=== PATIENT | female | born 1990 | race Caucasian/White ===

== ENCOUNTER 2018-02-24 12:17 | Outpatient (CLI) | payer MEDICAID | END 2018-02-24 14:27 | disposition home or self-care (01) | LOC: OBT 12:17 → L-D 12:19 → OBT 14:27 | DX: O34.219 Maternal care for unspecified type scar from previous cesarean delivery (principal); Z3A.38 38 weeks gestation of pregnancy | CPT/HCPCS: 76818 ==

== ENCOUNTER 2018-02-28 09:43 | Outpatient (CLI) | payer MEDICAID | END 2018-02-28 12:30 | disposition home or self-care (01) | LOC: OBT 09:43 → L-D 09:44 → OBT 12:30 | DX: O62.9 Abnormality of forces of labor, unspecified (principal); Z3A.38 38 weeks gestation of pregnancy | CPT/HCPCS: 76818 ==

== ENCOUNTER 2018-03-03 13:20 | Outpatient (CLI) | payer MEDICAID | END 2018-03-03 16:45 | disposition home or self-care (01) | LOC: OBT 13:20 → L-D 13:20 → OBT 16:45 | DX: O34.219 Maternal care for unspecified type scar from previous cesarean delivery (principal); Z3A.19 19 weeks gestation of pregnancy | CPT/HCPCS: 76815; 76818 ==

== ENCOUNTER 2018-03-07 07:35 | Inpatient (IN) | payer MEDICAID ==
[2018-03-07] MEDS ORDERED: MISOPROSTOL 200 MCG TAB PR ×2 (08:00→16:30)
[2018-03-07] MEDS ORDERED: CARBOPROST 250 MCG INJ IM ×2 (08:00→16:30)
[2018-03-07] MEDS ORDERED: OXYTOCIN 30 UNITS/LR 500 ML IV ×2 (08:00→16:30)
[2018-03-07] MEDS ORDERED: LIDOCAINE 1% (MPF) 30 ML INJ INJ (08:00)
[2018-03-07] MEDS ORDERED: BUTORPHANOL 1 MG INJ IV (08:00)
[2018-03-07 08:15] LABS: ADD MAN DIFF? NO
[2018-03-07 08:17] LABS: BASOPHILS % 0.2 % (0.0-2.0); EOSINOPHILS % 0.2 % (0.0-7.0); HEMATOCRIT 39.8 % (37.0-47.0); HEMOGLOBIN 13.7 g/dl (12.0-16.0); LYMPHOCYTES # 1.3 10^3/ul (0.8-2.9); LYMPHOCYTES % 10.7 % (15.0-51.0); MEAN CORPUSCULAR HEMOGLOBIN 30.2 pg (29.0-33.0); MEAN CORPUSCULAR HGB CONC 34.4 g/dl (32.0-37.0); MEAN CORPUSCULAR VOLUME 87.9 fl (82.0-101.0); MEAN PLATELET VOLUME 10.5 fl (7.4-10.4); MONOCYTE # 0.7 10^3/ul (0.3-0.9); MONOCYTES % 5.3 % (0.0-11.0); NEUTROPHILS % 82.5 % (39.0-77.0); PLATELET COUNT 169 10^3/UL (140-415); RED BLOOD COUNT 4.53 10^6/ul (4.20-5.40); RED CELL DISTRIBUTION WIDTH 12.5 % (11.5-14.5)
[2018-03-07 08:17] LABS: WHITE BLOOD COUNT 12.2 10^3/ul (4.8-10.8)
[2018-03-07] MEDS: AMPICILLIN 2 GM/NS (PMX) 100 ML IV (08:19)
[2018-03-07] MEDS: LACTATED RINGER'S 1,000 ML IV ×2 (08:19→09:24)
[2018-03-07 08:47] LABS: INR 0.94; PROTIME 12.7 Sec (11.9-14.9)
[2018-03-07 08:48] LABS: PARTIAL THROMBOPLASTIN TIME 24.6 Sec (25.0-35.0)
[2018-03-07] MEDS: BUTORPHANOL 2 MG INJ IV (09:03)
[2018-03-07 09:39] LABS: ALANINE AMINOTRANSFERASE 24 IU/L (13-69); ASPARTATE AMINO TRANSFERASE 24 IU/L (15-46); URIC ACID 4.1 mg/dl (3.1-7.9)
[2018-03-07 09:39] LABS: CREATININE 0.47 mg/dl (0.44-1.00)
[2018-03-07] MEDS ORDERED: FENTAnyl 2MCG/ML-ROPIV 0.2% 100 ML (10:48)
[2018-03-07 11:18] LABS: HEPATITIS B SURFACE ANTIGEN NEGATIVE (NEGATIVE)
[2018-03-07] MEDS ORDERED: ONDANSETRON 4 MG INJ IV (11:30)
[2018-03-07] MEDS ORDERED: DIPHENHYDRAMINE 50 MG INJ IV (11:30)
[2018-03-07] MEDS ORDERED: NALOXONE (0.4 MG/ML) INJ IV (11:30)
[2018-03-07] MEDS: AMPICILLIN 1 GM/NS (PMX) 50 ML IV (12:24)
[2018-03-07] MEDS: MINERAL OIL LIGHT 10 ML VIAL TOP (12:29)
[2018-03-07] MEDS: FENTAnyl 2MCG/ML-ROPIV 0.2% 100 ML BAG EPI (12:29)
[2018-03-07] MEDS: OXYTOCIN 30 UNITS/LR 500 ML IV ×3 (12:55→15:13)
[2018-03-07] MEDS: METHYLERGONOVINE 0.2 MG INJ IM (15:14)
[2018-03-07] MEDS ORDERED: METHYLERGONOVINE 0.2 MG INJ IM (16:30)
[2018-03-07] MEDS ORDERED: HYDROCODONE/APAP (5/325) TAB PO ×2 (16:30)
[2018-03-07] MEDS ORDERED: DIBUCAINE 1% 30 GM OINT TOP (16:30)
[2018-03-07] MEDS ORDERED: ZOLPIDEM 5 MG TAB PO (16:30)
[2018-03-07] MEDS: IBUPROFEN 600 MG TAB PO ×2 (17:39→23:51)
[2018-03-07] MEDS: WITCH HAZEL/GLYCERIN PAD PR (17:39)
[2018-03-07] MEDS: LANOLIN 7 GM TUBE TOP (17:40)
[2018-03-07] MEDS: BENZOCAINE 20% 56 ML SPRAY TOP (17:40)
[2018-03-07] MEDS: CEPHALEXIN 500 MG CAP PO ×2 (17:40→23:51)
[2018-03-07] MEDS: LACTATED RINGER'S 1,000 ML IV* (17:41)
[2018-03-07] MEDS: MAGNESIUM HYDROXIDE 30ML CUP PO (21:48)
[2018-03-07] MEDS: SENNA/DOCUSATE NA (8.6MG/50MG) TAB PO (21:48)
[2018-03-07 22:04] LABS: RAPID PLASMA REAGIN NONREACTIVE (NR)
[2018-03-08] MEDS: LACTATED RINGER'S 1,000 ML IV* ×4 (00:14→20:23)
[2018-03-08] MEDS: IBUPROFEN 600 MG TAB PO ×4 (06:00→23:48)
[2018-03-08] MEDS: CEPHALEXIN 500 MG CAP PO ×4 (06:00→23:48)
[2018-03-08] MEDS ORDERED: CEFAZOLIN 1 GM INJ (07:00)
[2018-03-08] MEDS: SENNA/DOCUSATE NA (8.6MG/50MG) TAB PO ×2 (09:00→21:04)
[2018-03-08] MEDS: MAGNESIUM HYDROXIDE 30ML CUP PO ×2 (09:00→21:04)
[2018-03-08 09:36] LABS: ADD MAN DIFF? NO
[2018-03-08 09:38] LABS: BASOPHILS % 0.2 % (0.0-2.0); EOSINOPHILS # 0.1 10^3/ul (0.0-0.5); HEMATOCRIT 31.9 % (37.0-47.0); HEMOGLOBIN 10.7 g/dl (12.0-16.0); LYMPHOCYTES # 1.7 10^3/ul (0.8-2.9); LYMPHOCYTES % 16.2 % (15.0-51.0); MEAN CORPUSCULAR HEMOGLOBIN 30.2 pg (29.0-33.0); MEAN CORPUSCULAR HGB CONC 33.5 g/dl (32.0-37.0); MEAN CORPUSCULAR VOLUME 90.1 fl (82.0-101.0); MEAN PLATELET VOLUME 10.5 fl (7.4-10.4); MONOCYTE # 0.8 10^3/ul (0.3-0.9); MONOCYTES % 7.9 % (0.0-11.0); NEUTROPHIL # 7.7 10^3/ul (1.6-7.5); NEUTROPHILS % 73.7 % (39.0-77.0); PLATELET COUNT 166 10^3/UL (140-415); RED BLOOD COUNT 3.54 10^6/ul (4.20-5.40); RED CELL DISTRIBUTION WIDTH 12.8 % (11.5-14.5)
[2018-03-08 09:38] LABS: WHITE BLOOD COUNT 10.4 10^3/ul (4.8-10.8)
[2018-03-08] MEDS ORDERED: FENTAnyl 50 MCG/ML VIAL (14:25)
[2018-03-08] MEDS ORDERED: BUPIVACAINE 0.75%/DEXT (SPINAL) 2 ML INJ (14:25)
[2018-03-08] MEDS ORDERED: ONDANSETRON 4 MG INJ (14:25)
[2018-03-08] MEDS ORDERED: MIDAZOLAM 1 MG/ML 2 ML INJ (14:36)
[2018-03-08] MEDS ORDERED: DIPHENHYDRAMINE 50 MG INJ (14:48)
[2018-03-08] MEDS: BUPIVACAINE 0.25%/EPI (SDV) 30 ML INJ INJ (14:51)
[2018-03-08] MEDS ORDERED: LABETALOL HCL 20MG INJ IV (15:00)
[2018-03-08] MEDS ORDERED: hydrALAzine 20 MG INJ IV (15:00)
[2018-03-08] MEDS ORDERED: DIPHENHYDRAMINE 50 MG INJ IV (15:00)
[2018-03-08] MEDS ORDERED: ONDANSETRON 4 MG INJ IV (15:00)
[2018-03-08] MEDS ORDERED: FENTAnyl 50 MCG/ML VIAL IV ×3 (15:00)
[2018-03-08] MEDS ORDERED: IPRATROPIUM (NEB) 0.5 MG/2.5 ML AMP HHN (15:00)
[2018-03-08] MEDS ORDERED: MIDAZOLAM 1 MG/ML 2 ML INJ IV (15:00)
[2018-03-08] MEDS ORDERED: ALBUTEROL 0.083% (NEB) 2.5 MG/3 ML AMP HHN (15:00)
[2018-03-08] MEDS ORDERED: OXYCODONE/ACETAMINOPHEN (5/325) TAB PO ×2 (15:00)
[2018-03-08] MEDS ORDERED: EPHEDrine SULFATE 50 MG/5 ML SYG IV (15:00)
[2018-03-08] MEDS ORDERED: TRIMETHOBENZAMIDE 100 MG/ML VIAL IM (15:00)
[2018-03-08] MEDS ORDERED: MEPERIDINE 25 MG INJ IV (15:00)
[2018-03-08] MEDS ORDERED: HYDROmorphONE (0.2 MG/ML) 10ML SYG IV ×3 (15:00)
[2018-03-08] MEDS ORDERED: KETOROLAC 60 MG INJ IM (15:25)
[2018-03-08] MEDS: BUTORPHANOL 2 MG INJ IM ×2 (16:14)
[2018-03-08] MEDS: CEFAZOLIN 2 GM/50 ML (PMX) 50 ML IVPB (16:15)
[2018-03-08] MEDS: KETOROLAC 60 MG INJ IM (16:50)
[2018-03-08] MEDS: LACTATED RINGER'S 1,000 ML IV (17:21)
[2018-03-08] MEDS ORDERED: ZOLPIDEM 5 MG TAB PO (20:30)
[2018-03-08] MEDS ORDERED: DIBUCAINE 1% 30 GM OINT PR (20:30)
[2018-03-09] MEDS: HYDROCODONE/APAP (5/325) TAB PO ×3 (04:02→12:15)
[2018-03-09] MEDS: CEPHALEXIN 500 MG CAP PO ×2 (05:38→11:59)
[2018-03-09] MEDS: IBUPROFEN 600 MG TAB PO ×2 (05:38→11:59)
[2018-03-09] MEDS ORDERED: MEASLES,MUMPS,RUBELLA VACCINE INJ SC* (09:00)
[2018-03-09] MEDS ORDERED: VARICELLA VACCINE LIVE/PF 1,350 UNIT/0.5 ML ML SC* (09:00)
[2018-03-09] MEDS ORDERED: DIPHTH/TET/ACEL PERTUSS (ADULT) 0.5 ML VIAL IM* (09:00)
[2018-03-09] MEDS: MAGNESIUM HYDROXIDE 30ML CUP PO (09:27)
[2018-03-09] MEDS: SENNA/DOCUSATE NA (8.6MG/50MG) TAB PO (09:27)
[2018-03-09] MEDS: DIPHTH/TET/ACEL PERTUSS (ADULT) 0.5 ML VIAL IM* (12:02)
[2018-03-09] MEDS: LANOLIN 7 GM TUBE TOP (12:18)
[2018-03-09] MEDS: WITCH HAZEL/GLYCERIN PAD PR (12:18)
[2018-03-09] MEDS: BENZOCAINE 20% 56 ML SPRAY TOP (12:18)
[2018-03-10] MEDS ORDERED: DIPHTH/TET/ACEL PERTUSS (ADULT) 0.5 ML VIAL IM* (09:00)
[2018-03-10] MEDS ORDERED: VARICELLA VACCINE LIVE/PF 1,350 UNIT/0.5 ML ML SC* (09:00)
[2018-03-10] MEDS ORDERED: MEASLES,MUMPS,RUBELLA VACCINE INJ SC* (09:00)
== END 2018-03-09 14:19 | disposition home or self-care (01) | DRG 767 ==
LOC: OBT 07:35 → L-D 07:36 → OBT 07:50 → L-D 07:45 → PP1 15:51
PROVIDERS: Obstetrics & Gynecology
PROC: 0UL70ZZ Occlusion of Bilateral Fallopian Tubes, Open Approach (ICD-10-PCS; 2018-03-08 14:00)
PROC: 10E0XZZ Delivery of Products of Conception, External Approach (ICD-10-PCS; principal; 2018-03-08 14:17)
DX: O34.211 Maternal care for low transverse scar from previous cesarean delivery (principal); Z30.2 Encounter for sterilization; Z3A.39 39 weeks gestation of pregnancy; Z37.0 Single live birth
CPT/HCPCS: 62319; 82565; 84450; 84460; 84560; 85025; 85610; 85730; 86592; 86850; 86900; 86901; 87340; 88302; 90715

== ENCOUNTER 2019-01-29 08:08 | Emergency (ER) | payer MEDICAID ==
[2019-01-29 09:01] LABS: URINE BLOOD (Dip) POC Negative (NEGATIVE); URINE GLUCOSE (Dip) POC Negative (NEGATIVE); URINE KETONES (Dip) POC Negative (NEGATIVE); URINE LEUKOCYTE EST (Dip) POC Negative (NEGATIVE); URINE NITRITE (Dip) POC Negative (NEGATIVE); URINE TOTAL PROTEIN POC Negative (NEGATIVE)
[2019-01-29] MEDS: KETOROLAC 60 MG INJ IM (09:09)
[2019-01-29 09:10] LABS: ADD MAN DIFF? NO
[2019-01-29 09:13] LABS: WHITE BLOOD COUNT 9.3 10^3/ul (4.8-10.8)
[2019-01-29 09:13] LABS: BASOPHILS % 0.3 % (0.0-2.0); EOSINOPHILS % 0.3 % (0.0-7.0); HEMATOCRIT 39.3 % (37.0-47.0); HEMOGLOBIN 13.3 g/dl (12.0-16.0); LYMPHOCYTES # 1.4 10^3/ul (0.8-2.9); LYMPHOCYTES % 14.6 % (15.0-51.0); MEAN CORPUSCULAR HEMOGLOBIN 29.2 pg (29.0-33.0); MEAN CORPUSCULAR HGB CONC 33.8 g/dl (32.0-37.0); MEAN CORPUSCULAR VOLUME 86.4 fl (82.0-101.0); MEAN PLATELET VOLUME 9.1 fl (7.4-10.4); MONOCYTE # 0.4 10^3/ul (0.3-0.9); MONOCYTES % 4.6 % (0.0-11.0); NEUTROPHIL # 7.4 10^3/ul (1.6-7.5); NEUTROPHILS % 79.6 % (39.0-77.0); PLATELET COUNT 327 10^3/UL (140-415); RED BLOOD COUNT 4.55 10^6/ul (4.20-5.40); RED CELL DISTRIBUTION WIDTH 12.2 % (11.5-14.5)
[2019-01-29 09:27] LABS: ADD UMIC NO; UR ASCORBIC ACID NEGATIVE (NEGATIVE); UR BILIRUBIN (Dip) NEGATIVE (NEGATIVE); UR BLOOD (Dip) NEGATIVE (NEGATIVE); UR CLARITY CLEAR (CLEAR); UR COLOR STRAW (YELLOW); UR GLUCOSE (Dip) NEGATIVE (NEGATIVE); UR KETONES (Dip) NEGATIVE (NEGATIVE); UR LEUKOCYTE ESTERASE (Dip) NEGATIVE Leu/ul (NEGATIVE); UR NITRITE (Dip) NEGATIVE (NEGATIVE); UR SPECIFIC GRAVITY (Dip) 1.008 (1.003-1.030); UR TOTAL PROTEIN (Dip) NEGATIVE (NEGATIVE); UR UROBILINOGEN (Dip) NEGATIVE (NEGATIVE)
[2019-01-29 09:33] LABS: ALANINE AMINOTRANSFERASE 29 IU/L (13-69); ALBUMIN 4.8 g/dl (3.3-4.9); ALBUMIN/GLOBULIN RATIO 1.45; ALKALINE PHOSPHATASE 96 IU/L (42-121); ANION GAP 10 (5-13); ASPARTATE AMINO TRANSFERASE 21 IU/L (15-46); BILIRUBIN,INDIRECT 0.3 mg/dl (0-1.1); BILIRUBIN,TOTAL 0.3 mg/dl (0.2-1.3); BLOOD UREA NITROGEN 11 mg/dl (7-20); CALCIUM 9.6 mg/dl (8.4-10.2); CARBON DIOXIDE 26 mmol/L (21-31); CHLORIDE 106 mmol/L (97-110); CREATININE 0.55 mg/dl (0.44-1.00); Estimated GFR > 60 mL/min (>60); GLUCOSE 83 mg/dl (70-220); LIPASE 90 U/L (23-300); POTASSIUM 4.1 mmol/L (3.5-5.1); SODIUM 142 mmol/L (135-144); TOTAL PROTEIN 8.1 g/dl (6.1-8.1)
== END 2019-01-29 10:00 | disposition home or self-care (01) ==
LOC: FTE 08:08
DX: R10.11 Right upper quadrant pain (principal)
CPT/HCPCS: 36415; 76705; 80053; 81003; 81025; 83690; 85025; 96372; 99285-25

== ENCOUNTER 2019-04-30 06:55 | Emergency (ER) | payer MEDICAID ==
[2019-04-30] MEDS: ONDANSETRON 4 MG INJ IV (07:25)
[2019-04-30] MEDS: SOD CHLORIDE 0.9% 1,000 ML IV (07:25)
[2019-04-30] MEDS: morphine 4 MG/ML VIAL IV (07:25)
[2019-04-30 07:31] LABS: ADD MAN DIFF? NO
[2019-04-30 07:33] LABS: WHITE BLOOD COUNT 12.5 10^3/ul (4.8-10.8)
[2019-04-30 07:33] LABS: BASOPHILS % 0.2 % (0.0-2.0); EOSINOPHILS % 0.2 % (0.0-7.0); HEMATOCRIT 37.4 % (37.0-47.0); HEMOGLOBIN 12.7 g/dl (12.0-16.0); LYMPHOCYTES # 1.3 10^3/ul (0.8-2.9); LYMPHOCYTES % 10.5 % (15.0-51.0); MEAN CORPUSCULAR HEMOGLOBIN 28.4 pg (29.0-33.0); MEAN CORPUSCULAR VOLUME 83.7 fl (82.0-101.0); MEAN PLATELET VOLUME 9.7 fl (7.4-10.4); MONOCYTE # 0.5 10^3/ul (0.3-0.9); MONOCYTES % 4.2 % (0.0-11.0); NEUTROPHIL # 10.6 10^3/ul (1.6-7.5); NEUTROPHILS % 84.6 % (39.0-77.0); PLATELET COUNT 297 10^3/UL (140-415); RED BLOOD COUNT 4.47 10^6/ul (4.20-5.40)
[2019-04-30 07:51] LABS: ALANINE AMINOTRANSFERASE 16 IU/L (13-69); ALBUMIN 4.6 g/dl (3.3-4.9); ALBUMIN/GLOBULIN RATIO 1.43; ALKALINE PHOSPHATASE 85 IU/L (42-121); ANION GAP 11 (5-13); ASPARTATE AMINO TRANSFERASE 20 IU/L (15-46); BILIRUBIN,INDIRECT 0.4 mg/dl (0-1.1); BILIRUBIN,TOTAL 0.4 mg/dl (0.2-1.3); BLOOD UREA NITROGEN 13 mg/dl (7-20); CARBON DIOXIDE 24 mmol/L (21-31); CHLORIDE 106 mmol/L (97-110); CREATININE 0.59 mg/dl (0.44-1.00); Estimated GFR > 60 mL/min (>60); GLUCOSE 132 mg/dl (70-220); LIPASE 97 U/L (23-300); POTASSIUM 3.7 mmol/L (3.5-5.1); SODIUM 141 mmol/L (135-144); TOTAL PROTEIN 7.8 g/dl (6.1-8.1)
[2019-04-30] MEDS: KETOROLAC 30 MG INJ IV (08:21)
[2019-04-30 08:44] LABS: UR AMORPHOUS CRYSTAL MANY /HPF (NONE SEEN); UR RBC 1 /HPF (0-5); UR WBC 1 /HPF (0-5)
[2019-04-30 08:48] LABS: ADD UMIC YES; UR ASCORBIC ACID NEGATIVE (NEGATIVE); UR BILIRUBIN (Dip) NEGATIVE (NEGATIVE); UR BLOOD (Dip) NEGATIVE (NEGATIVE); UR CLARITY TURBID (CLEAR); UR COLOR YELLOW (YELLOW); UR GLUCOSE (Dip) NEGATIVE (NEGATIVE); UR KETONES (Dip) NEGATIVE (NEGATIVE); UR LEUKOCYTE ESTERASE (Dip) NEGATIVE Leu/ul (NEGATIVE); UR NITRITE (Dip) NEGATIVE (NEGATIVE); UR SPECIFIC GRAVITY (Dip) 1.018 (1.003-1.030); UR TOTAL PROTEIN (Dip) NEGATIVE (NEGATIVE); UR UROBILINOGEN (Dip) NEGATIVE (NEGATIVE)
[2019-04-30] MEDS: morphine 2 MG INJ IV (09:04)
== END 2019-04-30 10:04 | disposition home or self-care (01) ==
LOC: FTE 06:55
DX: K80.20 Calculus of gallbladder without cholecystitis without obstruction (principal)
CPT/HCPCS: 36415; 76705; 80053; 81001; 81025; 83690; 85025; 96361; 96374; 96375; 96376; 99285-25

== ENCOUNTER 2019-05-04 19:56 | Inpatient (IN) | payer MEDICAID ==
[2019-05-04] MEDS: SOD CHLORIDE 0.9% 1,000 ML IV (20:35)
[2019-05-04] MEDS: ONDANSETRON 4 MG INJ IV (20:41)
[2019-05-04] MEDS: KETOROLAC 30 MG INJ IV (20:41)
[2019-05-04] MEDS: HYDROmorphONE 1 MG/ML SYG IV (20:41)
[2019-05-04 20:42] LABS: ADD MAN DIFF? NO
[2019-05-04 20:43] LABS: WHITE BLOOD COUNT 18.5 10^3/ul (4.8-10.8)
[2019-05-04 20:43] LABS: BASOPHILS % 0.1 % (0.0-2.0); HEMATOCRIT 38.2 % (37.0-47.0); HEMOGLOBIN 13.1 g/dl (12.0-16.0); LYMPHOCYTES % 5.2 % (15.0-51.0); MEAN CORPUSCULAR HEMOGLOBIN 28.5 pg (29.0-33.0); MEAN CORPUSCULAR HGB CONC 34.3 g/dl (32.0-37.0); MEAN PLATELET VOLUME 9.5 fl (7.4-10.4); MONOCYTE # 0.9 10^3/ul (0.3-0.9); MONOCYTES % 4.8 % (0.0-11.0); NEUTROPHIL # 16.6 10^3/ul (1.6-7.5); NEUTROPHILS % 89.5 % (39.0-77.0); PLATELET COUNT 402 10^3/UL (140-415); RED CELL DISTRIBUTION WIDTH 12.1 % (11.5-14.5)
[2019-05-04 20:44] LABS: ADD UMIC YES; UR ASCORBIC ACID NEGATIVE (NEGATIVE); UR BILIRUBIN (Dip) NEGATIVE (NEGATIVE); UR BLOOD (Dip) 3+ mg/dL (NEGATIVE); UR CLARITY CLOUDY (CLEAR); UR COLOR YELLOW (YELLOW); UR GLUCOSE (Dip) NEGATIVE (NEGATIVE); UR KETONES (Dip) 2+ mg/dL (NEGATIVE); UR LEUKOCYTE ESTERASE (Dip) TRACE Leu/ul (NEGATIVE); UR MUCUS FEW /HPF (NONE SEEN); UR NITRITE (Dip) NEGATIVE (NEGATIVE); UR RBC > 182 /HPF (0-5); UR SPECIFIC GRAVITY (Dip) 1.023 (1.003-1.030); UR SQUAMOUS EPITHELIAL CELL MODERATE /HPF (FEW); UR TOTAL PROTEIN (Dip) 2+ mg/dl (NEGATIVE); UR UROBILINOGEN (Dip) NEGATIVE (NEGATIVE); UR WBC 28 /HPF (0-5)
[2019-05-04 21:02] LABS: ALANINE AMINOTRANSFERASE 24 IU/L (13-69); ALBUMIN 4.8 g/dl (3.3-4.9); ALBUMIN/GLOBULIN RATIO 1.37; ALKALINE PHOSPHATASE 79 IU/L (42-121); ANION GAP 14 (5-13); ASPARTATE AMINO TRANSFERASE 20 IU/L (15-46); BILIRUBIN,INDIRECT 0.6 mg/dl (0-1.1); BILIRUBIN,TOTAL 0.6 mg/dl (0.2-1.3); BLOOD UREA NITROGEN 6 mg/dl (7-20); CALCIUM 9.5 mg/dl (8.4-10.2); CARBON DIOXIDE 25 mmol/L (21-31); CHLORIDE 100 mmol/L (97-110); CREATININE 0.51 mg/dl (0.44-1.00); Estimated GFR > 60 mL/min (>60); GLUCOSE 127 mg/dl (70-220); LIPASE 41 U/L (23-300); POTASSIUM 3.4 mmol/L (3.5-5.1); SODIUM 139 mmol/L (135-144); TOTAL PROTEIN 8.3 g/dl (6.1-8.1)
[2019-05-04] MEDS: HYDROmorphONE 2 MG/ML SYG IV (21:23)
[2019-05-04] MEDS: HYDROmorphONE 0.5 MG/0.5 ML SYG IV (21:26)
[2019-05-05] MEDS ORDERED: ACETAMINOPHEN 325 MG TAB PO
[2019-05-05] MEDS: morphine 4 MG/ML VIAL IV (01:30)
[2019-05-05] MEDS ORDERED: NACL 0.9% 3 ML SYG IV (03:00)
[2019-05-05] MEDS ORDERED: morphine 4 MG/ML VIAL IV ×2 (03:00→04:30)
[2019-05-05] MEDS ORDERED: ONDANSETRON 4 MG INJ IV ×3 (03:00→21:30)
[2019-05-05] MEDS: DEXTROSE 5%-0.45% NACL 1,000 ML IV (03:38)
[2019-05-05] MEDS: HYDROmorphONE 2 MG/ML SYG IV (04:37)
[2019-05-05] MEDS: HYDROmorphONE 1 MG/ML SYG IV ×3 (04:38→15:16)
[2019-05-05 05:21] LABS: ADD MAN DIFF? NO
[2019-05-05 05:27] LABS: ABNORMAL IP MESSAGE 1; BASOPHILS % 0.2 % (0.0-2.0); EOSINOPHILS % 0.3 % (0.0-7.0); HEMOGLOBIN 11.4 g/dl (12.0-16.0); LYMPHOCYTES # 1.5 10^3/ul (0.8-2.9); LYMPHOCYTES % 12.2 % (15.0-51.0); MEAN CORPUSCULAR HEMOGLOBIN 29.1 pg (29.0-33.0); MEAN CORPUSCULAR HGB CONC 34.5 g/dl (32.0-37.0); MEAN CORPUSCULAR VOLUME 84.2 fl (82.0-101.0); MEAN PLATELET VOLUME 9.7 fl (7.4-10.4); MONOCYTE # 1.5 10^3/ul (0.3-0.9); MONOCYTES % 12.3 % (0.0-11.0); NEUTROPHIL # 9.2 10^3/ul (1.6-7.5); NEUTROPHILS % 74.7 % (39.0-77.0); PLATELET COUNT 279 10^3/UL (140-415); RED BLOOD COUNT 3.92 10^6/ul (4.20-5.40); RED CELL DISTRIBUTION WIDTH 12.2 % (11.5-14.5)
[2019-05-05 05:27] LABS: WHITE BLOOD COUNT 12.3 10^3/ul (4.8-10.8)
[2019-05-05 05:41] LABS: ALANINE AMINOTRANSFERASE 20 IU/L (13-69); ALBUMIN 3.7 g/dl (3.3-4.9); ALBUMIN/GLOBULIN RATIO 1.32; ALKALINE PHOSPHATASE 57 IU/L (42-121); ANION GAP 8 (5-13); ASPARTATE AMINO TRANSFERASE 15 IU/L (15-46); BILIRUBIN,INDIRECT 0.6 mg/dl (0-1.1); BILIRUBIN,TOTAL 0.6 mg/dl (0.2-1.3); BLOOD UREA NITROGEN 5 mg/dl (7-20); CALCIUM 8.1 mg/dl (8.4-10.2); CARBON DIOXIDE 26 mmol/L (21-31); CHLORIDE 106 mmol/L (97-110); CREATININE 0.47 mg/dl (0.44-1.00); Estimated GFR > 60 mL/min (>60); GLUCOSE 133 mg/dl (70-220); MAGNESIUM 1.8 mg/dl (1.7-2.5); PHOSPHORUS 2.7 mg/dl (2.5-4.9); POSITIVE DIFF @See below; SODIUM 140 mmol/L (135-144); TOTAL PROTEIN 6.5 g/dl (6.1-8.1)
[2019-05-05] MEDS: PIPER-TAZO 3.375 GM IV (PMX) 100 ML IVPB ×3 (06:21→19:04)
[2019-05-05] MEDS: KETOROLAC 30 MG INJ IV ×2 (06:28→18:11)
[2019-05-05 07:53] LABS: POTASSIUM 3.2 mmol/L (3.5-5.1)
[2019-05-05] MEDS: FAMOTIDINE 20 MG INJ IV ×2 (09:04→22:51)
[2019-05-05] MEDS: D5W-0.45 NACL + KCL 20 MEQ 1,000 ML IV ×3 (13:22→22:51)
[2019-05-05] MEDS ORDERED: PROPOFOL 100 ML (19:48)
[2019-05-05] MEDS ORDERED: ROCURONIUM 50 MG INJ (19:52)
[2019-05-05] MEDS ORDERED: LIDOCAINE 2% (SDV) 5 ML INJ (19:52)
[2019-05-05] MEDS: LIDOCAINE 1% (MPF) 30 ML INJ INJ (20:05)
[2019-05-05] MEDS: BUPIVACAINE 0.5%/EPI (SDV) 30 ML INJ INJ (20:05)
[2019-05-05] MEDS ORDERED: DEXAMETHASONE 4 MG/ML 5 ML INJ (20:14)
[2019-05-05] MEDS ORDERED: ONDANSETRON 4 MG INJ (20:14)
[2019-05-05] MEDS ORDERED: LABETALOL HCL 20MG INJ (21:06)
[2019-05-05] MEDS ORDERED: NEOSTIGMINE 3 MG/3 ML SYRINGE (21:13)
[2019-05-05] MEDS ORDERED: GLYCOPYRROLATE 0.4 MG INJ (21:13)
[2019-05-05] MEDS ORDERED: KETOROLAC 30 MG INJ IV (21:30)
[2019-05-05] MEDS ORDERED: DIPHENHYDRAMINE 50 MG INJ IV ×2 (21:30→22:00)
[2019-05-05] MEDS ORDERED: METOCLOPRAMIDE 10 MG INJ IV ×2 (21:30→22:00)
[2019-05-05] MEDS ORDERED: EPHEDrine 25 MG/5 ML SYG IV (22:00)
[2019-05-05] MEDS ORDERED: ALBUTEROL 0.083% (NEB) 2.5 MG/3 ML AMP HHN (22:00)
[2019-05-05] MEDS ORDERED: FENTAnyl 50 MCG/ML VIAL IV ×3 (22:00)
[2019-05-05] MEDS ORDERED: LABETALOL HCL 20MG INJ IV (22:00)
[2019-05-05] MEDS ORDERED: MEPERIDINE 25 MG INJ IV (22:00)
[2019-05-05] MEDS ORDERED: hydrALAzine 20 MG INJ IV (22:00)
[2019-05-05] MEDS ORDERED: HYDROmorphONE 1 MG/5 ML IV SYRINGE IV ×3 (22:00)
[2019-05-05] MEDS: ONDANSETRON 4 MG INJ IV (22:02)
[2019-05-06] MEDS: PIPER-TAZO 3.375 GM IV (PMX) 100 ML IVPB ×3 (00:24→11:58)
[2019-05-06] MEDS: HYDROmorphONE 1 MG/ML SYG IV ×3 (01:35→09:23)
[2019-05-06] MEDS: D5W-0.45 NACL + KCL 20 MEQ 1,000 ML IV ×3 (04:30→12:30)
[2019-05-06 05:18] LABS: ADD MAN DIFF? NO
[2019-05-06 05:25] LABS: BASOPHILS % 0.1 % (0.0-2.0); HEMATOCRIT 31.6 % (37.0-47.0); HEMOGLOBIN 10.8 g/dl (12.0-16.0); LYMPHOCYTES # 0.6 10^3/ul (0.8-2.9); LYMPHOCYTES % 6.3 % (15.0-51.0); MEAN CORPUSCULAR HGB CONC 34.2 g/dl (32.0-37.0); MEAN CORPUSCULAR VOLUME 84.7 fl (82.0-101.0); MEAN PLATELET VOLUME 9.8 fl (7.4-10.4); MONOCYTE # 0.5 10^3/ul (0.3-0.9); MONOCYTES % 4.4 % (0.0-11.0); NEUTROPHILS % 88.7 % (39.0-77.0); PLATELET COUNT 289 10^3/UL (140-415); RED BLOOD COUNT 3.73 10^6/ul (4.20-5.40); RED CELL DISTRIBUTION WIDTH 12.5 % (11.5-14.5)
[2019-05-06 05:25] LABS: WHITE BLOOD COUNT 10.1 10^3/ul (4.8-10.8)
[2019-05-06 06:01] LABS: ANION GAP 7 (5-13); BLOOD UREA NITROGEN 4 mg/dl (7-20); CALCIUM 8.1 mg/dl (8.4-10.2); CARBON DIOXIDE 26 mmol/L (21-31); CHLORIDE 108 mmol/L (97-110); CREATININE 0.49 mg/dl (0.44-1.00); Estimated GFR > 60 mL/min (>60); GLUCOSE 140 mg/dl (70-220); MAGNESIUM 2.1 mg/dl (1.7-2.5); PHOSPHORUS 2.4 mg/dl (2.5-4.9); POTASSIUM 3.9 mmol/L (3.5-5.1); SODIUM 141 mmol/L (135-144)
[2019-05-06] MEDS: FAMOTIDINE 20 MG INJ IV (09:21)
[2019-05-06] MEDS: HYDROCODONE/APAP (5/325) TAB PO ×2 (13:03→13:04)
[2019-05-06] MEDS ORDERED: OXYCODONE/ACETAMINOPHEN (5/325) TAB PO (14:00)
== END 2019-05-06 15:15 | disposition home or self-care (01) | DRG 419 ==
LOC: MS1 23:51 → FTE 19:56
PROC: 0FT44ZZ Resection of Gallbladder, Percutaneous Endoscopic Approach (ICD-10-PCS; principal; 2019-05-05 20:00)
PROC: BF12YZZ Fluoroscopy of Gallbladder using Other Contrast (ICD-10-PCS; 2019-05-05 20:00)
DX: K80.12 Calculus of gallbladder with acute and chronic cholecystitis without obstruction (principal); K82.A1 Gangrene of gallbladder in cholecystitis; E87.6 Hypokalemia
CPT/HCPCS: 36415; 74176; 76705; 80048; 80053; 81001; 81025; 83690; 83735; 84100; 85025; 88304; 96374; 96375; 96376; 99285-25